=== PATIENT | female | born 1940 | race Caucasian/White ===

== ENCOUNTER → 2018-02-10 | Outpatient (CLI) | payer MEDICARE, OTHER ==
--- NOTE | 2018-02-10 13:31 | CT ---
EXAMINATION TYPE: CT brain wo con DATE OF EXAM: 02/10/2018 HISTORY: mild cognitive impairment per order. CT DLP: 922.1 mGycm. Automated Exposure Control for Dose Reduction was Utilized. TECHNIQUE: CT scan of the head is performed without contrast. COMPARISON: None. FINDINGS: There is no acute intracranial hemorrhage or midline shift identified. There is diffuse v entricular and sulcal prominence consistent with diffuse age-related cerebral atrophy. There is low- attenuation in the periventricular white matter consistent with chronic small vessel ischemic change. Soft tissue density left external auditory canal axial image 7 is felt to reflect cerumen. Calcifica tion right lens is seen. Visualized portion of paranasal sinuses are clear. There is vascular calcifi cation of distal internal carotid arteries bilaterally. IMPRESSION: No acute intracranial hemorrhage or midline shift. There is moderate diffuse age-relate d cerebral atrophy and mild chronic small vessel ischemic change noted.
== END ==
LOC: RADCTMAIN 13:07
PROVIDERS: ATTEND Psychiatry & Neurology Neurology
DX: G31.84 Mild cognitive impairment of uncertain or unknown etiology (principal); G31.1 Senile degeneration of brain, not elsewhere classified
CPT/HCPCS: 70450